=== PATIENT | female | born 1985 | race American Indian/Alaskan Native ===

== ENCOUNTER 2016-08-17 15:22 | Emergency (ER) | payer MEDICAID ==
[2016-08-17] MEDS ORDERED: Sodium Chloride 0.9% 1,000 ML IV ONE (16:31)
[2016-08-17 16:33] LABS: URINE BILIRUBIN NEGATIVE (NEGATIVE); URINE BLOOD NEGATIVE (NEGATIVE); URINE COLOR Yellow (YELLOW); URINE GLUCOSE (UA) NORMAL (Normal); URINE KETONE NEGATIVE (NEGATIVE); URINE LEUKOCYTE ESTERASE NEG Leu/uL (Negative); URINE PROTEIN NEGATIVE (NEGATIVE); URINE UROBILINOGEN NORMAL mg/dL (0.2-1.0); WBC URINE 1 /hpf (0-5)
--- NOTE | 2016-08-17 16:49 | C.PDOC ---
History Of Present Illness 31 y/o female presents to the ED with complains of pelvic/suprapubic pain radiating to vagina and rectum x1 hour. Pt denies vaginal bleeding or discharge , nausea, vomiting, diarrhea or dysuria/hematuria. LMP was 07/31. Patient has PMHx of uterine fibroids, but is unsure if current symptoms are similar to prior fibroid pain. Time Seen by Provider: 08/17/16 15:58 Chief Complaint (Nursing): Abdominal Pain History Per: Patient History/Exam Limitations: no limitations Onset/Duration Of Symptoms: Mins Current Symptoms Are (Timing): Still Present Severity: Moderate Location Of Pain/Discomfort: Suprapubic Radiation Of Pain To:: Other (vagina, rectum) Quality Of Discomfort: "Pain" Associated Symptoms: denies: Fever, Nausea, Vomiting, Diarrhea, Urinary Symptoms Exacerbating Factors: None Alleviating Factors: None Recent travel outside of the [place]: No Abnormal Vaginal Bleeding: No Past Medical History Reviewed: Historical Data, Nursing Documentation, Vital Signs Vital Signs: Last Vital Signs Temp 97.7 F 08/17/16 18:47 Pulse 80 08/17/16 18:47 Resp 14 08/17/16 18:47 BP 110/70 08/17/16 18:47 Pulse Ox 97 08/17/16 18:47 - Medical History PMH: Anxiety, Asthma, Depression Surgical History: Appendectomy, Tonsillectomy Family History: States: CAD - Social History Hx Tobacco Use: No Hx Alcohol Use: No Hx Substance Use: No - Immunization History Hx Tetanus Toxoid Vaccination: No Hx Influenza Vaccination: Yes (02/2016) Hx Pneumococcal Vaccination: No Review Of Systems Except As Marked, All Systems Reviewed And Found Negative. Constitutional: Negative for: Fever Cardiovascular: Negative for: Chest Pain, Palpitations Respiratory: Negative for: Cough, Shortness of Breath Gastrointestinal: Positive for: Abdominal Pain (suprapubic). Negative for: Nausea, Vomiting, Diarrhea Genitourinary: Positive for: Pelvic Pain (radiating to vagina and rectum). Negative for: Dysuria, Vaginal Discharge, Vaginal Bleeding Physical Exam - Physical Exam Appears: Non-toxic, In Acute Distress (mild pain) Skin: Warm, Dry, No Rash Head: Normacephalic Oral Mucosa: Moist Cardiovascular: Rhythm Regular Respiratory: Normal Breath Sounds, No Rales, No Rhonchi, No Wheezing Gastrointestinal/Abdominal: No Normal Exam, Bowel Sounds, Soft, Tenderness ( suprapubic TTP), No Guarding, No Rebound, Other ((-) McBurney's) Back: No CVA Tenderness Pelvic: Normal External Exam, Normal Speculum Exam, Normal Bimanual Exam, No Vaginal Bleeding, No Vaginal Discharge, No Cervical Motion Tenderness, No Cervix Open, No Adnexal Tenderness Extremity: Bilateral: Atraumatic Neurological/Psych: Oriented x3 ED Course And Treatment - Laboratory Results Result Diagrams: 08/17/16 16:31 08/17/16 17:00 O2 Sat by Pulse Oximetry: 99 (room air) Pulse Ox Interpretation: Normal - CT Scan/US transvaginal US Other Rad Studies (CT/US): Read By Radiologist, Radiology Report Reviewed CT/US Interpretation: Accession No. : [id number]. Patient Name / ID : SHINE CALLAHAN / [id number]. Exam Date : 08/17/2016 17:16:03 ( Approved ). Study Comment : Sex / Age : F / 31Y. Creator : Vera Hernández MD. Dictator : Vera Hernández MD. Electrolytic De Scaler : Director Emergency Services : Vera Hernández MD. Approver2 : Report Date : 08/17/2016 18:11:33. My Comment : . HISTORY: PELVIC PAIN. COMPARISON: None available. TECHNIQUE: Real- time transabdominal pelvic ultrasound was performed. In addition a transvaginal pelvic ultrasound was necessary to better depict pelvic anatomy. FINDINGS: UTERUS: Measures 9.2 x 4.5 x 5.2 cm. 1.1 x 1.0 x 0.9 cm probable uterine fibroid. ENDOMETRIUM: Measures 8 mm in diameter. CERVIX: Trace fluid within the cervix. RIGHT OVARY: Measures 4.9 x 2.5 x 3.9 cm. Blood flow is demonstrated. LEFT OVARY: Measures 4.0 x 2.3 x 3.5 cm. Blood flow is demonstrated. FREE FLUID: Small pelvic free fluid. OTHER FINDINGS: None. IMPRESSION: 1.1 cm probable uterine fibroid. Small pelvic free fluid. Trace fluid within the cervix. Progress Note: Plan: Blood work, UA, Upreg, transvaginal US ordered and reviewed. Patient given IV NS bolus, IV Toradol. Reevaluation Time: 18:25 Reassessment Condition: Improved (Patient reassessed, is resting comfortably, in no current pain. On exam, abdomen is soft and nontender. Blood work, UA, Upreg (-). US shows probable fibroid. Patient given rxs for pain medication, and was instructed to follow up with breakdown mill operator within 1 week. She understands she should return to ED if symptoms worsen.) Disposition Counseled Patient/Family Regarding: Studies Performed, Diagnosis, Need For Followup, Rx Given - Disposition Referrals: Nicole Rodriguez [Medical Doctor] - [facility] [Outside] Disposition: HOME/ ROUTINE Disposition Time: 18:30 Condition: STABLE Additional Instructions: FOLLOW UP WITH FARM RANCHER WITHIN 1 WEEK USE PAIN MEDICATION NEEDED RETURN TO ER IF SYMPTOMS WORSEN Prescriptions: Acetaminophen with Codeine [Tylenol with Codeine #3 Tablet] 1 each PO Q6 PRN # 12 tablet PRN Reason: pain Naproxen [Naprosyn Tab] 375 mg PO BID PRN #20 tab PRN Reason: pain Instructions: Uterine Fibroids (ED) Forms: Work Excuse Print Language: MALIAN - Clinical Impression Clinical Impression: Uterine fibroid, Pelvic pain - Scribe Statement The provider has reviewed the documentation as recorded by the Feng Hansen Provider Attestation: All medical record entries made by the Feng were at my direction and personally dictated by me. I have reviewed the chart and agree that the record accurately reflects my personal performance of the history, physical exam, medical decision making, and the department course for this patient. I have also personally directed, reviewed, and agree with the discharge instructions and disposition.
[2016-08-17] MEDS ORDERED: Sodium Chloride 0.9% 1,000 ML ONE (17:02)
[2016-08-17 17:07] LABS: BASO # 0.1 K/uL (0.0-0.2); BASO % 1.1 % (0.0-2.0); EOS # 0.5 K/uL (0.0-0.7); EOS % 7.8 % (0.0-4.0); HEMATOCRIT 36.1 % (34.0-47.0); LYMPH # 1.3 K/uL (1.0-4.3); LYMPH % 19.8 % (20.0-40.0); MEAN CELL VOLUME 84.8 fL (81.0-99.0); MEAN CORPUSCULAR HEMOGLOBIN 27.9 pg (27.0-31.0); MEAN CORPUSCULAR HGB CONC 32.9 g/dL (33.0-37.0); MEAN PLATELET VOLUME 9.4 fL (7.2-11.7); MONO # 0.7 K/uL (0.0-0.8); RED CELL DISTRIBUTION WIDTH 13.3 % (11.5-14.5); WHITE BLOOD COUNT 6.8 K/uL (4.8-10.8)
[2016-08-17 17:17] LABS: CHLORIDE 102 mmol/L (98-107); POTASSIUM 3.9 mmol/L (3.6-5.2); SODIUM 138 mmol/L (132-148)
[2016-08-17 17:19] LABS: GFR AFRICAN-AMERICAN > 60
[2016-08-17 17:20] LABS: ALB/GLOB RATIO 1.3 (1.0-2.1); ALKALINE PHOSPHATASE 52 U/L (38-126); ALT/SGPT 19 U/L (9-52); AST/SGOT 22 U/L (14-36); BILIRUBIN,TOTAL 0.6 mg/dL (0.2-1.3); BLOOD UREA NITROGEN 10 mg/dL (7-17); CARBON DIOXIDE 26 mmol/L (22-30); GLUCOSE,RANDOM 99 mg/dL (65-105); TOTAL PROTEIN 7.4 g/dL (6.3-8.3)
[2016-08-17 17:21] LABS: CALCIUM 8.5 mg/dl (8.6-10.4)
--- NOTE | 2016-08-17 18:13 | US ---
HISTORY: PELVIC PAIN COMPARISON: None available. TECHNIQUE: Real-time transabdominal pelvic ultrasound was performed. In addition a transvaginal pelvic ultrasound was necessary to better depict pelvic anatomy FINDINGS: UTERUS: Measures 9.2 x 4.5 x 5.2 cm. 1.1 x 1.0 x 0.9 cm probable uterine fibroid. ENDOMETRIUM: Measures 8 mm in diameter. CERVIX: Trace fluid within the cervix. RIGHT OVARY: Measures 4.9 x 2.5 x 3.9 cm. Blood flow is demonstrated. LEFT OVARY: Measures 4.0 x 2.3 x 3.5 cm. Blood flow is demonstrated. FREE FLUID: Small pelvic free fluid. OTHER FINDINGS: None. IMPRESSION: 1.1 cm probable uterine fibroid. Small pelvic free fluid. Trace fluid within the cervix.
[2016-08-17 18:48] VITALS: BP 110/70; PULSE 80; RESP 14; TEMP 97.7
[2016-08-19 18:50] VITALS: O2SAT 99
== END 2016-08-17 18:48 | disposition home or self-care (01) ==
LOC: C.ER 15:22
DX: D25.9 Leiomyoma of uterus, unspecified (principal); R10.2 Pelvic and perineal pain
CPT/HCPCS: 76830; 76856; 80053; 81001; 84703; 85025; 96361; 96374; 99284; J1885; J7040

== ENCOUNTER 2016-10-19 10:40 | Emergency (ER) | payer MEDICAID ==
[2016-10-19 10:50] VITALS: TEMP 98
--- NOTE | 2016-10-19 11:22 | C.PDOC ---
History Of Present Illness 31 y.o complains of left wrist pain, no trauma. She states the pain worsened with strenuous use or movement. 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 denies numbness, weakness, fever, redness. right hand dominant Time Seen by Provider: 10/19/16 11:06 Chief Complaint (Nursing): Upper Extremity Problem/Injury History Per: Patient History/Exam Limitations: no limitations Onset/Duration Of Symptoms: Days Current Symptoms Are (Timing): Still Present Quality: "Pain" Severity: Moderate Exacerbating Factor(s): Strenuous Use Of Affected Area Recent travel outside of the [place]: No Past Medical History Reviewed: Historical Data, Nursing Documentation, Vital Signs Vital Signs: Last Vital Signs Temp 98 F 10/19/16 10:50 Pulse 70 10/19/16 11:50 Resp 16 10/19/16 11:50 BP 106/68 10/19/16 11:50 Pulse Ox 99 10/19/16 11:53 - Medical History PMH: Anxiety, Asthma, Depression Surgical History: Appendectomy, Tonsillectomy Family History: States: Unknown Family Hx, CAD - Social History Hx Tobacco Use: No Hx Alcohol Use: No Hx Substance Use: No - Immunization History Hx Tetanus Toxoid Vaccination: No Hx Influenza Vaccination: Yes (02/2016) Hx Pneumococcal Vaccination: No Review Of Systems Constitutional: Negative for: Fever, Chills Musculoskeletal: Positive for: Other (left wrist pain) Neurological: Negative for: Weakness, Numbness Physical Exam - Physical Exam Appears: Non-toxic, No Acute Distress Skin: Warm, Dry, No Rash, No Ecchymosis Head: Atraumatic, Normacephalic Eye(s): bilateral: Normal Inspection Neck: Normal ROM Extremity: Normal ROM, Tenderness (mild tenderness left volar wrist, pain with pronation, supination and flexion), Capillary Refill (< 2seconds), No Deformity , No Swelling Pulses: Left Radial: Normal Neurological/Psych: Oriented x3, Normal Speech, Normal Motor, Normal Sensation Gait: Steady ED Course And Treatment O2 Sat by Pulse Oximetry: 99 (room air) Pulse Ox Interpretation: Normal Medical Decision Making Medical Decision Makin y.o with left wrist pain, no trauma. Exam shows no swelling and mild tenderness to volar wrist, pain with pronation/supination and flexion. Findings consistent with tendonitis. Velcro volar splint applied. Motrin PO given. Recommend NSAIDs, rest and follow up with ortho if pain persists. 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 - Scribe Statement The provider has reviewed the documentation as recorded by the Scribjulieta Hansen All medical record entries made by the Irvinibjulieta were at my direction and personally dictated by me. I have reviewed the chart and agree that the record accurately reflects my personal performance of the history, physical exam, medical decision making, and the department course for this patient. I have also personally directed, reviewed, and agree with the discharge instructions and disposition.
[2016-10-19 11:51] VITALS: BP 106/68; PULSE 70; RESP 16
[2016-10-19 11:52] VITALS: O2SAT 99
== END 2016-10-19 11:56 | disposition home or self-care (01) ==
LOC: C.ER 10:40
DX: M77.9 Enthesopathy, unspecified (principal)

== ENCOUNTER 2017-09-24 20:28 | Emergency (ER) | payer MEDICAID ==
--- NOTE | 2017-09-24 21:44 | C.PDOC ---
History Of Present Illness 32 year old female presents to the ED for evaluation of right-sided chest discomfort which began around 1 hour ago. Patient states symptoms are digitally and positionally reproducible. She also reports recently experiencing a dry, non -productive cough. Patient thought her symptoms were indicative of gas, and she took some gas medication without relief. Patient denies fever, chills, recent trauma/injuries, nausea, vomiting, extremity numbness/weakness. Time Seen by Provider: 09/24/17 21:14 Chief Complaint (Nursing): Chest Pain History Per: Patient History/Exam Limitations: no limitations Onset/Duration Of Symptoms: Hrs Current Symptoms Are (Timing): Still Present Quality: "Pain" Additional History Per: Patient Past Medical History Reviewed: Historical Data, Nursing Documentation, Vital Signs Vital Signs: Last Vital Signs Temp 98.2 F 09/24/17 20:44 Pulse 74 09/24/17 21:19 Resp 14 09/24/17 20:44 BP 117/76 09/24/17 20:44 Pulse Ox 98 09/24/17 21:47 - Medical History PMH: Anxiety, Asthma, Depression Surgical History: Appendectomy, Tonsillectomy Family History: States: CAD - Social History Hx Tobacco Use: No Hx Alcohol Use: No Hx Substance Use: No - Immunization History Hx Tetanus Toxoid Vaccination: No Hx Influenza Vaccination: Yes (02/2016) Hx Pneumococcal Vaccination: No Review Of Systems Constitutional: Negative for: Fever, Chills Cardiovascular: Positive for: Other (right-sided chest discomfort ) Respiratory: Positive for: Cough. 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 Motrin PO administered. Medical Decision Making Medical Decision Making: L anterior chest wall costochondritis clear lungs no pna/pnx presentation perhaps magnified by pt's h/o anxiety/depression. Disposition Doctor Will See Patient In The: Office Counseled Patient/Family Regarding: Studies Performed, Diagnosis - Disposition Disposition: HOME/ ROUTINE Disposition Time: 21:48 Condition: GOOD Forms: [employer] (Chilean) - Clinical Impression Clinical Impression: Chest wall discomfort - Scribe Statement The provider has reviewed the documentation as recorded by the Scribe (Nery Wade) Provider Attestation: All medical record entries made by the Scribe were at my direction and personally dictated by me. I have reviewed the chart and agree that the record accurately reflects my personal performance of the history, physical exam, medical decision making, and the department course for this patient. I have also personally directed, reviewed, and agree with the discharge instructions and disposition.
[2017-09-24 21:54] VITALS: BP 115/62; PULSE 67; RESP 20; TEMP 97.6; O2SAT 100
--- NOTE | 2017-09-25 08:46 | RAD ---
HISTORY: R chest wall discomfort anterior, ? PNA/pnx COMPARISON: Comparison is made with 01/29/2015 TECHNIQUE: Chest PA and lateral FINDINGS: LUNGS: No active pulmonary disease. PLEURA: No significant pleural effusion identified. No pneumothorax apparent. CARDIOVASCULAR: Normal. OSSEOUS STRUCTURES: No significant abnormalities. VISUALIZED UPPER ABDOMEN: Normal. OTHER FINDINGS: None. IMPRESSION: No active disease.
== END 2017-09-24 22:00 | disposition home or self-care (01) ==
LOC: C.ER 20:28
DX: R07.89 Other chest pain (principal)

== ENCOUNTER 2017-11-05 19:12 | Emergency (ER) | payer MEDICAID ==
[2017-11-05 20:21] LABS: BASO # 0.1 K/uL (0.0-0.2); BASO % 0.9 % (0.0-2.0); EOS # 0.5 K/uL (0.0-0.7); EOS % 6.1 % (0.0-4.0); HEMOGLOBIN 12.5 g/dL (11.0-16.0); LYMPH # 2.8 K/uL (1.0-4.3); LYMPH % 36.1 % (20.0-40.0); MEAN CELL VOLUME 84.5 fL (81.0-99.0); MEAN CORPUSCULAR HEMOGLOBIN 27.5 pg (27.0-31.0); MEAN CORPUSCULAR HGB CONC 32.6 g/dL (33.0-37.0); MEAN PLATELET VOLUME 9.3 fL (7.2-11.7); MONO # 0.8 K/uL (0.0-0.8); MONO % 9.9 % (0.0-10.0); NEUT # 3.7 K/uL (1.8-7.0); NRBC % 0.1 % (0.0-2.0); RBC 4.55 Mil/uL (3.80-5.20); RED CELL DISTRIBUTION WIDTH 13.2 % (11.5-14.5); WHITE BLOOD COUNT 7.9 K/uL (4.8-10.8)
[2017-11-05 20:23] LABS: HCG,QUALITATIVE URINE NEGATIVE (NEGATIVE)
[2017-11-05 20:24] LABS: SQUAMOUS EPITHIAL 2 /hpf (0-5); URINE BILIRUBIN NEGATIVE (NEGATIVE); URINE BLOOD NEGATIVE (NEGATIVE); URINE CLARITY Clear (Clear); URINE COLOR Straw (YELLOW); URINE GLUCOSE (UA) NORMAL (Normal); URINE LEUKOCYTE ESTERASE NEG Leu/uL (Negative); URINE PROTEIN NEGATIVE (NEGATIVE); URINE UROBILINOGEN NORMAL mg/dL (0.2-1.0)
[2017-11-05 20:33] LABS: ALB/GLOB RATIO 1.3 (1.0-2.1); ALBUMIN 4.4 g/dL (3.5-5.0); ALT/SGPT 24 U/L (9-52); AST/SGOT 20 U/L (14-36); BLOOD UREA NITROGEN 9 mg/dL (7-17); CALCIUM 9.7 mg/dl (8.6-10.4); GFR AFRICAN-AMERICAN > 60; GFR NON-AFRICAN AMERICAN > 60
[2017-11-05] MEDS ORDERED: Lactated Ringer's 1,000 ML IVB STA (20:35)
[2017-11-05] MEDS ORDERED: Lactated Ringer's 1,000 ML ONE (20:44)
[2017-11-05] MEDS ORDERED: cefTRIAXone (Rocephin) 250 mg Inj IM STA (21:44)
--- NOTE | 2017-11-05 21:48 | C.PDOC ---
Time Seen by Provider: 11/05/17 19:23 Chief Complaint (Nursing): Abdominal Pain History Per: Patient Onset/Duration Of Symptoms: Days (about 1 week) Current Symptoms Are (Timing): Still Present Severity: Moderate Location Of Pain/Discomfort: Suprapubic Quality Of Discomfort: "Pain" Associated Symptoms: Nausea Alleviating Factors: None Additional History Per: Prior Records Past Medical History Reviewed: Historical Data, Nursing Documentation, Vital Signs Vital Signs: Last Vital Signs Temp 98.1 F 11/05/17 19:15 Pulse 95 H 11/05/17 19:15 Resp 20 11/05/17 19:15 BP 163/73 H 11/05/17 19:15 Pulse Ox 99 11/05/17 19:15 - Medical History PMH: Anxiety, Asthma, Depression Surgical History: Appendectomy, Tonsillectomy Family History: States: Unknown Family Hx, CAD - Social History Hx Tobacco Use: No Hx Alcohol Use: No Hx Substance Use: No - Immunization History Hx Tetanus Toxoid Vaccination: No Hx Influenza Vaccination: Yes (2016) Hx Pneumococcal Vaccination: No Review Of Systems Except As Marked, All Systems Reviewed And Found Negative. Constitutional: Negative for: Fever, Weakness Cardiovascular: Negative for: Chest Pain Respiratory: Negative for: Shortness of Breath Genitourinary: Positive for: Frequency, Vaginal Discharge, Pelvic Pain Musculoskeletal: Negative for: Neck Pain, Back Pain Skin: Negative for: Rash Neurological: Negative for: Weakness, Numbness Physical Exam - Physical Exam Appears: Non-toxic, No Acute Distress Skin: Normal Color, Warm, Dry, No Rash Head: Atraumatic, Normacephalic Eye(s): bilateral: Normal Inspection, PERRL, EOMI Neck: Normal ROM, Supple Cardiovascular: Rhythm Regular Respiratory: Normal Breath Sounds, No Accessory Muscle Use Gastrointestinal/Abdominal: Soft, Tenderness (lower abdomen), No Guarding, No Rebound Back: No CVA Tenderness Pelvic: No Vaginal Bleeding, Vaginal Discharge, No Cervical Motion Tenderness, Adnexal Tenderness Neurological/Psych: Oriented x3, Normal Motor, Normal Sensation ED Course And Treatment - Laboratory Results Result Diagrams: 11/05/17 20:16 11/05/17 20:16 Lab Interpretation: No Acute Changes Urine POC: Negative O2 Sat by Pulse Oximetry: 99 Pulse Ox Interpretation: Normal Medical Decision Making Medical Decision Making: Pt states that her partner was cheating on her and is worried about STDs. Will treat for PID. Disposition Counseled Patient/Family Regarding: Studies Performed, Diagnosis, Need For Followup, Rx Given - Disposition Disposition: HOME/ ROUTINE Disposition Time: 21:49 Condition: FAIR Additional Instructions: Drink plenty of fluids. Follow up with your Fox Farmer within 1 week for further evaluation and treatment. Return to the ER if you develop fever, not tolerating fluids, worsening of symptoms or if you have any other concerns. Prescriptions: Doxycycline Hyclate 100 mg PO BID #28 capsule Instructions: Pelvic Inflammatory Disease (DC) - Clinical Impression Clinical Impression: Lower abdominal pain
[2017-11-05 22:01] VITALS: BP 126/83; PULSE 76; RESP 18; TEMP 98; O2SAT 98
== END 2017-11-05 22:01 | disposition home or self-care (01) ==
LOC: C.ER 19:12
DX: R10.30 Lower abdominal pain, unspecified (principal)
CPT/HCPCS: 80053; 81001; 84702; 84703; 85025; 87491; 87591; 96372; 96374; 96375; 99284; J0696; J1885; J2405; J7120

== ENCOUNTER 2018-01-03 12:27 | Emergency (ER) | payer MEDICAID ==
[2018-01-03 12:47] VITALS: RESP 16; TEMP 98.2; O2SAT 98
--- NOTE | 2018-01-03 13:15 | C.PDOC ---
History Of Present Illness 32 year old female presents to the ER after a window fell on her head while she was trying to close it at approximately 1000. Patient is currently complaining of tension to her neck and mild headache but otherwise denies photophobia, nausea, weakness, numbness, change in vision, or LOC. - HPI Time Seen by Provider: 01/03/18 12:44 Chief Complaint (Nursing): Trauma History Per: Patient History/Exam Limitations: no limitations Onset/Duration Of Symptoms: Hrs Injury Occurred (Timing): Just Before Arrival Location Of Injury: Right: Head Recent travel outside of the [place]: No Past Medical History Reviewed: Historical Data, Nursing Documentation, Vital Signs Vital Signs: Last Vital Signs Temp 98.2 F 01/03/18 12:44 Pulse 79 01/03/18 13:39 Resp 16 01/03/18 13:39 BP 117/78 01/03/18 13:39 Pulse Ox 98 01/03/18 13:39 - Medical History PMH: Anxiety, Asthma, Depression Surgical History: Appendectomy, Tonsillectomy Family History: States: CAD - Social History Hx Tobacco Use: No Hx Alcohol Use: No Hx Substance Use: No - Immunization History Hx Tetanus Toxoid Vaccination: No Hx Influenza Vaccination: Yes (2017) Hx Pneumococcal Vaccination: No Review Of Systems Eyes: Negative for: Vision Change Gastrointestinal: Negative for: Nausea, Vomiting Musculoskeletal: Positive for: Neck Pain Neurological: Positive for: Headache (Mild). Negative for: Weakness, Numbness, Other (Photophobia) Physical Exam - Physical Exam Appears: Non-toxic Skin: Normal Color, Warm, Dry Head: Normacephalic, Swelling (Right parietal) Eye(s): bilateral: Normal Inspection, PERRL, EOMI Ear(s): Bilateral: Normal Oral Mucosa: Moist Throat: No Erythema, No Exudate Neck: Normal, No Midline Cervical Tenderness, No Paracervical Tenderness, Supple Chest: Symmetrical, No Tenderness Cardiovascular: Rhythm Regular Respiratory: Normal Breath Sounds, No Rales, No Rhonchi, No Wheezing Gastrointestinal/Abdominal: Soft, No Tenderness Back: No Vertebral Tenderness, No Paraspinal Tenderness Extremity: Normal ROM (x4), No Tenderness, No Swelling Neurological/Psych: Oriented x3, Normal Speech, Normal Motor, Normal Sensation Gait: Steady ED Course And Treatment O2 Sat by Pulse Oximetry: 98 (room air) Pulse Ox Interpretation: Normal Progress Note: The patient has a normal physical exam, and agrees that CT scan is not needed at this time. Medical Decision Making Medical Decision Making: Tylenol and zofran administered. Patient reports improvement of pain, she is resting comfortably in the ER in no acute distress, vitals are stable, will discharge home with Rx and instructions to follow up with PMD or return if symptoms worsen. Disposition - Disposition Referrals: [facility] [Outside] Disposition: HOME/ ROUTINE Disposition Time: 13:28 Condition: GOOD Additional Instructions: Observe over the next 72 hours. 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 - Scribe Statement The provider has reviewed the documentation as recorded by the Scribjulieta Richard All medical record entries made by the Scribe were at my direction and personally dictated by me. I have reviewed the chart and agree that the record accurately reflects my personal performance of the history, physical exam, medical decision making, and the department course for this patient. I have also personally directed, reviewed, and agree with the discharge instructions and disposition.
[2018-01-03 13:40] VITALS: BP 117/78; PULSE 79
== END 2018-01-03 13:40 | disposition home or self-care (01) ==
LOC: C.ER 12:27
DX: S09.90XA Unspecified injury of head, initial encounter (principal); W20.8XXA Other cause of strike by thrown, projected or falling object, initial encounter

== ENCOUNTER 2018-06-30 15:28 | Emergency (ER) | payer MEDICAID | END 2018-06-30 17:39 | disposition home or self-care (01) | LOC: C.ER 15:28 ==